=== PATIENT | male | born 1970 | race African-American/Black ===

== ENCOUNTER 2018-09-16 18:05 | Emergency (ER) | payer OTHER ==
[~2018-09-16] VITALS: Ht 172.7 cm; Wt 124.7 kg
[~2018-09-16 18:05] MED LIST: ANUSOL-HC25 MG RECTAL; HYDROCHLOROTH12.5 M2 PO; IRON325 PO; METAMUCIL PAC1 UDPKT PO; METFORMIN HCL500 MG PO; NORVASC5 MG PO; ZESTRIL40 MG PO
[2018-09-16 19:35] LABS: HEMATOCRIT 33.7 % (42.0-52.0); HEMOGLOBIN 10.4 gm/dL (14.0-18.0); MCH 19.4 pg (26.0-34.0); MCHC 30.8 g/dL (28.0-37.0); MCV 63.1 fL (80.0-100.0); PLATELET COUNT 229 thou/uL (150-400); RBC 5.35 mil/uL (4.50-6.00); RDW 17.3 % (10.5-14.5); WBC 6.1 thou/uL (4.0-11.0)
[2018-09-16 19:48] LABS: CALCIUM 8.4 mg/dL (8.5-10.1); CREATININE 1.1 mg/dL (0.7-1.3); POTASSIUM 3.9 mmol/L (3.5-5.1)
[2018-09-16 19:52] LABS: ALBUMIN 3.5 g/dL (3.4-5.0); TOTAL BILIRUBIN 0.3 mg/dL (<0.1-1.0); TOTAL PROTEIN 7.9 g/dL (6.4-8.2)
[2018-09-16 20:01] LABS: ABSOLUTE NEUTROPHILS 4.8 thou/uL (1.4-8.2); ANISOCYTOSIS 1+; HYPOCHROMASIA 2+; MICROCYTES 2+; PLATELET ESTIMATE NORMAL
[2018-09-16] MEDS ORDERED: BENTYL 20 MG TA20 M1 PO (21:01)
[2018-09-16] MEDS ORDERED: TESSALON PERLE100 MG PO (21:01)
[2018-09-16 21:28] VITALS: BP 132/72
== END 2018-09-16 21:20 | disposition home or self-care (01) ==
LOC: ER 18:05
PROVIDERS: Physician Assistant
DX: J11.1 Influenza due to unidentified influenza virus with other respiratory manifestations (principal); D64.9 Anemia, unspecified; R05 Cough; R10.9 Unspecified abdominal pain; E11.9 Type 2 diabetes mellitus without complications; I10 Essential (primary) hypertension; E78.00 Pure hypercholesterolemia, unspecified